=== PATIENT | male | born 1990 | race Two or more races ===

== ENCOUNTER → 2017-05-11 | Emergency (ER) | payer OTHER ==
[~2017-05-11] VITALS: Ht 170.2 cm; Wt 68.0 kg
== END | disposition home or self-care (01) ==
LOC: ER 15:28
DX: S06.329A Contusion and laceration of left cerebrum with loss of consciousness of unspecified duration, initial encounter (principal); R07.1 Chest pain on breathing; V00.131A Fall from skateboard, initial encounter; Y93.51 Activity, roller skating (inline) and skateboarding; Y92.488 Other paved roadways as the place of occurrence of the external cause; Y99.8 Other external cause status